=== PATIENT | male | born 1990 | race Caucasian/White ===

== ENCOUNTER 2016-07-04 02:03 | Emergency (ER) | payer BC ==
[~2016-07-04] VITALS: Ht 167.6 cm; Wt 70.5 kg
[2016-07-04 02:04] VITALS: TEMP 96.9
[2016-07-04 02:19] LABS: BASO % 0.4 % (0.0-2.0); EOS % 0.5 % (0-4.0); GRAN # 3.2 (1.4-6.5); GRAN % 41.5 % (42.2-75.2); HEMATOCRIT 40.2 % (42.0-52.0); HEMOGLOBIN 13.9 g/dl (13.5-18.0); LYMPH % 51.7 % (20.0-51.0); MEAN CELL VOLUME 87 fl (80.0-100.0); MEAN CORPUSCULAR HEMOGLOBIN 30 pg (27.0-31.0); MEAN CORPUSCULAR HGB CONC 35 g/dl (33.0-37.0); MONO # 0.5 (0.1-0.6); MONO % 5.8 % (1.7-9.3); PLATELET COUNT 304 K/mm3 (130-400); RED BLOOD COUNT 4.63 M/mm3 (4.20-5.60); REDCELL DISTRIBUTION WIDTH-CV 12.2 % (11.5-14.5); WHITE BLOOD COUNT 7.8 K/mm3 (4.8-10.8)
[2016-07-04 02:30] LABS: ADJUSTED CALCIUM 7.9 mg/dL (8.4-10.2); ALBUMIN 4.5 gm/dL (3.5-5.0); BILIRUBIN,TOTAL 0.5 mg/dL (0.0-1.0); CALCIUM 8.3 mg/dL (8.4-10.2); CREATININE, serum 1.09 mg/dL (0.66-1.25); POTASSIUM 3.3 mmol/L (3.4-5.0); TOTAL PROTEIN 8.1 gm/dL (6.4-8.2)
[2016-07-04 08:10] VITALS: BP 97/61; PULSE 100
== END 2016-07-04 08:10 | disposition home or self-care (01) ==
LOC: COL.ER 02:03
PROVIDERS: Emergency Medicine
DX: F10.120 Alcohol abuse with intoxication, uncomplicated (principal); Y90.8 Blood alcohol level of 240 mg/100 ml or more; R11.10 Vomiting, unspecified
CPT/HCPCS: J2405; J7030